=== PATIENT | male | born 1995 | race Caucasian/White ===

== ENCOUNTER 2017-05-03 14:59 | Emergency (ER) | payer MEDICAID ==
[2017-05-03 15:07] VITALS: BP 115/67
--- NOTE | 2017-05-03 15:30 | UC ---
Skin Complaint HPI - HPI Summary HPI Summary: This is a 22 yo male with depression who presents with concern for a sore on his R leg. The area has been present for ~1 week. He has popped it frequently and has had some purulent drainage. No c/o fevers or malaise. No spreading erythema or streaking. He also mentions a cough and mild SOB. He has been working to quit smoking, he is down to ~4 cig daily. His partner has been sick with PNA recently. - History of Current Complaint Chief Complaint: UCSkin Time Seen by Provider: 05/03/17 15:10 Stated Complaint: SORE ON LEG - Allergy/Home Medications Allergies/Adverse Reactions: Allergies Allergy/AdvReac Type Severity Reaction Status Date / Time Bee Venom Allergy Hives Verified 05/03/17 15:07 Penicillins Allergy Hives Verified 05/03/17 15:07 Home Medications: Home Medications Citalopram TAB* [Celexa TAB*] 20 mg PO DAILY 05/03/17 [History Confirmed ] hydrOXYzine HCL TAB* [Atarax 25 MG TAB*] 25 mg PO BID 05/03/17 [History Confirmed 05/03/17] Review of Systems Constitutional: Negative Skin: Rash Eyes: Negative ENT: Negative Respiratory: Shortness Of Breath, Cough Cardiovascular: Negative Gastrointestinal: Negative Genitourinary: Negative Motor: Negative Neurovascular: Negative Musculoskeletal: Negative Neurological: Negative Psychological: Negative Is Patient Immunocompromised?: No All Other Systems Reviewed And Are Negative: Yes PMH/Surg Hx/FS Hx/Imm Hx Psychological History: Depression - Surgical History Surgical History: Yes Surgery Procedure, Year, and Place: 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 pyloric stenosis repair - Family History Known Family History: Positive: None - Social History Alcohol Use: Occasionally Alcohol Amount: one 12 pack every few days, "if not more" Substance Use Type: None, Marijuana Substance Use Comment - Amount & Last Used: rare occasions Smoking Status (MU): Heavy Every Day Tobacco Smoker Type: Cigarettes Amount Used/How Often: 1 pack every 2-3 days Physical Exam Triage Information Reviewed: Yes Appearance: Well-Appearing - accompanied by a female partner Vital Signs: Initial Vital Signs Temp 98.1 F 05/03/17 15:02 Pulse 85 05/03/17 15:02 Resp 18 05/03/17 15:02 BP 115/67 05/03/17 15:02 Pulse Ox 99 05/03/17 15:02 Vital Signs Reviewed: Yes ENT: Positive: Hearing grossly normal Neck: Positive: Supple, Nontender, No Lymphadenopathy Respiratory: Positive: Chest non-tender, No respiratory distress, Rhonchi - most notable in RLL, Wheezing Cardiovascular: Positive: RRR, No Murmur Abdomen Description: Positive: Nontender, Soft Neurological Exam: Normal Neurological: Positive: Alert Psychological Exam: Normal Psychological: Positive: Normal Response To Family Skin: Positive: Other - R posterior leg has an indurated area with surrounding erythema measuring ~3cm in diameter, no fluctuance Diagnostics - Laboratory Diagnostic Studies Completed/Ordered: CXR - NAD Course/Dx - Course Course Of Treatment: This is a 22 yo male with depression and h/o smoking who presents with a sore on his leg, cough and mild SOB with rhonchi on exam. Treat for abscess/cellulitis of the L leg and bronchitis - Differential Diagnoses - Skin Complaint Differential Diagnoses: Abscess, Cellulitis - Diagnoses Provider Diagnoses: 1. Abscess/cellulitis - L leg. 2. Bronchitis Discharge - Discharge Plan Condition: Stable Disposition: HOME Prescriptions: Albuterol HFA INHALER* [Ventolin HFA Inhaler*] 1 - 2 puff INH Q4H PRN #1 mdi PRN Reason: cough/SOB DOXYcycline CAP(*) [DOXYcycline 100MG CAP(*)] 100 mg PO BID #20 cap Patient Education Materials: Abscess (ED) Forms: *Work Release Referrals: No Primary Care Phys,NOPCP [Primary Care Provider] - Additional Instructions: INstructions: 1. Please stop manipulating the area on your leg 2. Take antibiotics as directed 3. Please continue to work on smoking cessation 4. Use inhaler as needed for cough and shortness of breath
--- NOTE | 2017-05-03 15:47 | RAD ---
INDICATION: Cough and rhonchi in the right lower lobe. COMPARISON: There are no prior studies available for comparison. TECHNIQUE: Dual-energy PA and lateral views of the chest were obtained. FINDINGS: The heart is within normal limits in size. Mediastinal and hilar contours appear within normal limits. The lungs are clear. No pleural effusion is present. IMPRESSION: NO EVIDENCE FOR ACTIVE CARDIOPULMONARY DISEASE.
== END 2017-05-03 15:51 | disposition home or self-care (01) ==
LOC: UCEAST 14:59
DX: L02.612 Cutaneous abscess of left foot (principal); J40 Bronchitis, not specified as acute or chronic; F17.210 Nicotine dependence, cigarettes, uncomplicated; F32.9 Major depressive disorder, single episode, unspecified
CPT/HCPCS: 71020; 99202; G0463

== ENCOUNTER 2017-11-24 16:39 | Emergency (ER) | payer MEDICAID, OTHER ==
[2017-11-24 19:35] VITALS: BP 132/59
[2017-11-24] MEDS ORDERED: Omeprazole CAP* 20 MG PO ONE (20:02)
--- NOTE | 2017-12-06 11:32 | UC ---
Respiratory Complaint HPI - HPI Summary HPI Summary: Patient c/o head cold for several days with nasal itch and congestion. He states his ears feel clogged from nasal congestion. He denies cough or fever or malaise. Yesterday he became nauseated and vomited red blood. Denies having recurrence of this episode since yesterday and has been eating since then. Also states he had some streaks of blood in stools which were normal in color. Denies diarrhea, mucus or melena. He has history of pyloric stenosis repaired as an infant, and PUD in the past, and has been taking NSAIDS for lumbago. He states he is a light smoker and drinks occasionally as well. Denies fatigue, weakness, dizziness or hyporexia. - History of Current Complaint Chief Complaint: UCRespiratory Stated Complaint: COUGHING BLOOD, CONGESTED Time Seen by Provider: 11/24/17 18:46 Hx Obtained From: Patient Onset/Duration: Sudden Onset, Lasting Days Pain Intensity: 5 Pain Scale Used: 0-10 Numeric Character: Cough: Nonproductive Aggravating Factors: Allergens Associated Signs And Symptoms: Positive: URI, Nasal Congestion, Sinus Discomfort - Risk Factors Pulmonary Embolism Risk Factors: Smoking Cardiac Risk Factors: Smoking Pseudomonas Risk Factors: Negative Tuberculosis Risk Factors: Negative - Allergies/Home Medications Allergies/Adverse Reactions: Allergies Allergy/AdvReac Type Severity Reaction Status Date / Time bee venom protein (honey bee) Allergy Hives Verified 11/24/17 17:25 Penicillins Allergy Hives Verified 11/24/17 17:25 PMH/Surg Hx/FS Hx/Imm Hx Previously Healthy: Yes - Surgical History Surgical History: Yes Surgery Procedure, Year, and Place: 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 pyloric stenosis repair. intusseption - Family History Known Family History: Positive: None - Social History Alcohol Use: Weekly Alcohol Amount: one 12 pack every few days, "if not more" Substance Use Type: Marijuana Substance Use Comment - Amount & Last Used: rare occasions Smoking Status (MU): Light Every Day Tobacco Smoker Type: Cigarettes Amount Used/How Often: 1 pack every 2-3 days Review of Systems All Other Systems Reviewed And Are Negative: Yes Physical Exam Triage Information Reviewed: Yes Appearance: Well-Appearing, No Pain Distress, Well-Nourished Vital Signs: Initial Vital Signs Temp 98.6 F 11/24/17 17:18 Pulse 86 11/24/17 17:18 Resp 18 11/24/17 17:18 BP 132/80 11/24/17 17:18 Pulse Ox 97 11/24/17 17:18 Vital Signs Reviewed: Yes Eyes: Positive: Conjunctiva Clear ENT: Positive: Pharynx normal, Nasal congestion, Nasal drainage, TMs normal, Uvula midline Dental Exam: Normal Respiratory: Positive: Chest non-tender, Lungs clear, Normal breath sounds, No respiratory distress Cardiovascular: Positive: RRR, No Murmur, Pulses Normal, Brisk Capillary Refill Abdomen Description: Positive: Nontender, No Organomegaly, Soft Bowel Sounds: Positive: Present Neurological: Positive: Muscle Tone Normal UC Diagnostic Evaluation - Laboratory O2 Sat by Pulse Oximetry: 100 Respiratory Course/Dx - Course Course Of Treatment: Discussed with patient history of PUD, possible recurrence , to avoid tobacco, alcohol, NSAIDS. Start omeprazole, discussed return to ED if melena, weakeness or recurrent vomiting appears, follow up with GI, referral to PCP. Start nasal toileting with normal saline and flonase after toileting. - Differential Dx/Diagnosis Provider Diagnoses: Hematemesis. PUD. Allergic rhinitis Discharge - Sign-Out/Discharge Documenting (check all that apply): Discharge - Discharge Plan Condition: Good Disposition: HOME Prescriptions: Fluticasone NASAL SPRAY 50MCG* [Flonase NASAL SPRAY 50MCG*] 2 spray BOTH NARES DAILY 10 Days #1 btl Omeprazole CAP* [Prilosec CAP* 20 MG] 20 mg PO BID #60 cap. Patient Education Materials: Omeprazole (By mouth), Fluticasone (Into the nose) , Peptic Ulcer (ED), Allergic Rhinitis (ED), Hematemesis (ED) Forms: *Work Release Referrals: [facility] [place] [facility] [Outside] Luis Jameson MD [Medical Doctor] - No Primary Care Phys,NOPCP [Primary Care Provider] - - Billing Disposition and Condition Condition: GOOD Disposition: HOME
== END 2017-11-24 20:18 | disposition home or self-care (01) ==
LOC: UCEAST 16:39
DX: K92.0 Hematemesis (principal); K27.9 Peptic ulcer, site unspecified, unspecified as acute or chronic, without hemorrhage or perforation; J30.9 Allergic rhinitis, unspecified; Z88.0 Allergy status to penicillin; F17.210 Nicotine dependence, cigarettes, uncomplicated
CPT/HCPCS: 99212; A9270-GY; G0463

== ENCOUNTER 2018-03-24 14:52 | Emergency (ER) | payer OTHER ==
[2018-03-24 16:01] VITALS: BP 132/94
--- NOTE | 2018-03-24 16:50 | UC ---
Dental HPI - HPI Summary HPI Summary: 23 y/o male presents to the urgent care c/o left upper jaw tooth pain for the past 2 days. Pt reports the last molar on the left upper jaw is fractured and the other next to it has cavities. Pain is 8/10 sharp w/ decrease appetite. He has taken Tylenol 500mg PO to alleviate symptoms, last dose taken 0830am. He has a Dentist appointment on 04/23/2018 to have molar extracted. Pt denies fever, BLACK, trismus, URI, SOB, chest pain, abdominal pain, N/V/D. - History of Current Complaint Chief Complaint: UCDentalProblem Stated Complaint: TEETH PAIN Time Seen by Provider: 03/24/18 16:48 Hx Obtained From: Patient Onset/Duration: Gradual Onset, Lasting Days - 2 days, Still Present, Worse Since - today Severity: Moderate Pain Intensity: 8 Pain Scale Used: 0-10 Numeric Aggravating Factor(s): Cold Alleviating Factor(s): OTC Meds Related History: Swelling - Allergies/Home Medications Allergies/Adverse Reactions: Allergies Allergy/AdvReac Type Severity Reaction Status Date / Time bee venom protein (honey bee) Allergy Hives Verified 03/24/18 16:01 Penicillins Allergy Hives Verified 03/24/18 16:01 PMH/Surg Hx/FS Hx/Imm Hx Previously Healthy: Yes - Pt denies PMHX - Surgical History Surgical History: Yes Surgery Procedure, Year, and Place: 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 pyloric stenosis repair. intusseption - Family History Known Family History: Positive: None - Pt denies MHX - Social History Occupation: Employed Full-time Lives: With Family Alcohol Use: Rare Alcohol Amount: one 12 pack every few days, "if not more" Substance Use Type: Marijuana Substance Use Comment - Amount & Last Used: rare occasions Smoking Status (MU): Light Every Day Tobacco Smoker Type: Cigarettes Amount Used/How Often: 1 pack every 2-3 days Review of Systems Constitutional: Negative Skin: Negative Eyes: Negative ENT: Dental Pain - LF upper jaw toothache w/ swelling Respiratory: Negative Cardiovascular: Negative Gastrointestinal: Negative Genitourinary: Negative Motor: Negative Neurovascular: Negative Musculoskeletal: Negative Neurological: Negative Psychological: Negative Is Patient Immunocompromised?: No All Other Systems Reviewed And Are Negative: Yes Physical Exam - Summary Physical Exam Summary: Vital Signs Reviewed: Yes General: Well-Appearing, Well-Nourished male, No Pain Distress Eyes: Positive: Conjunctiva Clear - PERRLA, EOMI, ENT: Positive: Normal ENT inspection, Hearing grossly normal, Pharynx normal, TMs normal - B/L external ear canals clear,. Negative: Tonsillar swelling, Tonsillar exudate, Trismus Dental: Positive: Gross Decay/Caries @ - tooth #15 and 16, Abscess @ - gingival swelling and erythema, tender to percussion. involves tissue surrounding the teeth #15 and 16., Cervical Lymphadenopathy - anterior- fracture molar #16. Neck: Positive: Supple Respiratory: Positive: Chest non-tender, Lungs clear, Normal breath sounds, No respiratory distress Cardiovascular: Positive: RRR, No Murmur, Pulses Normal, Brisk Capillary Refill Abdomen Description: Positive: Nontender, No Organomegaly, Soft. Negative: CVA Tenderness (R), CVA Tenderness (L) Bowel Sounds: Positive: Present Musculoskeletal: Positive: Strength Intact, ROM Intact, No Edema Neurological Exam: Normal Psychological Exam: Normal Skin Exam: Normal Triage Information Reviewed: Yes Vital Signs: Initial Vital Signs Temp 98.0 F 03/24/18 15:58 Pulse 66 03/24/18 15:58 Resp 12 03/24/18 15:58 BP 132/94 03/24/18 15:58 Pulse Ox 99 03/24/18 15:58 Dental Complaint Course/Dx - Course Course Of Treatment: 23 y/o male presents to the urgent care c/o left upper jaw tooth pain for the past 2 days. Pt reports the last molar on the left upper jaw is fractured and the other next to it has cavities. Pain is 8/10 sharp w/ decrease appetite. He has taken Tylenol 500mg PO to alleviate symptoms, last dose taken 0830am. He has a Dentist appointment on 04/23/2018 to have molar extracted. Pt denies fever, BLACK, trismus, URI, SOB, chest pain, abdominal pain, N /V/D. Pt with dental abscess between molar #15 and 16 on examination. Pt given viscous Lidocaine at the clinic to alleviate symptoms. Pt Rx Clindamycin PO and Ibuprofen PO for pain. Pt strongly advised to f/u with Dentist as soon as possible further evaluation and treatment. Pt's BP is elevated today advised to decrease salt in diet, monitor BP and f/u with PCP for further management. Pt understood and agreed with plan of care. Left the clinic ambulating. - Differential Dx/Diagnosis Differential Diagnosis/Dx: Dental Abscess, Dental Caries, Odontogenic Pain, Peridontic Disease, Peritonsillar Abcess, Tonsillitis Provider Diagnoses: 1- Dental abscess around molar #15 and 16. 2-Fracture molar #16. 3-Dental pain. 4- Elevated BP w/o Hx of HTN Discharge - Discharge Plan Condition: Stable Disposition: HOME Prescriptions: Clindamycin Cap(NF) [Clindamycin Cap 300 mg Cap(NF)] 300 mg PO TID #30 cap Ibuprofen TAB* [Motrin TAB* 800 MG] 800 mg PO Q6H PRN #30 tab PRN Reason: dental pain Patient Education Materials: Dental Abscess (ED), Low-Sodium Diet (ED) Referrals: [facility] [Outside] - 2 Days Additional Instructions: 1-Please take full course of antibiotic to avoid resistance. Please take yogurt w/ probiotics or Culturelle to protect your GI system. 2- Take Ibuprofen PO as instructed after meals to alleviate pain and swelling. 3- F/u with your Dentist or Dental List provided as soon as possible for further treatment. 4- If symptoms do not improve or worsen please return to the urgent care or f/u with your PCP for further evaluation and treatment. 5-Your BP is elevated today. please decrease salt in your diet, monitor BP and if it continues to be elevated please f/u with your PCP for further management - Billing Disposition and Condition Condition: STABLE Disposition: Home
[2018-03-24] MEDS ORDERED: Lidocaine 2% VISCOUS* 15 ML UDC SWISH SPIT ONE (16:59)
[2018-03-24] MEDS ORDERED: Ketorolac INJ* 30 MG/ML 1 ML VIAL IM ONE (16:59)
[2018-03-24] MEDS ORDERED: Clindamycin CAP* 150 MG PO ONE (17:25)
== END 2018-03-24 17:30 | disposition home or self-care (01) ==
LOC: UCEAST 14:52
DX: K04.7 Periapical abscess without sinus (principal); K03.81 Cracked tooth; K02.9 Dental caries, unspecified; R03.0 Elevated blood-pressure reading, without diagnosis of hypertension; Z88.0 Allergy status to penicillin; Z91.030 Bee allergy status; F17.210 Nicotine dependence, cigarettes, uncomplicated
CPT/HCPCS: 96372; 99212; A9270-GY; G0463; J1885